=== PATIENT | male | born 1975 | race Caucasian/White ===

== ENCOUNTER 2017-08-08 13:11 | Emergency (ER) | payer OTHER, MEDICARE ==
[2017-08-08 14:21] LABS: Basophils % (Auto) 0.5 % (0.0-1.8); Eosinophils % (Auto) 1.5 % (0.0-4.3); Mean Corpuscular HGB Conc 33 % (32-34); Mean Corpuscular Hemoglobin 30 pg (28-32); Mean Corpuscular Volume 91 fl (84-94); Platelet Count 524 K/mm3 (140-440); Red Blood Count 1.53 M/mm3 (3.65-5.03); Red Cell Distribution Width 14.2 % (13.2-15.2); White Blood Count 6.1 K/mm3 (4.5-11.0)
[2017-08-08 14:30] LABS: Hematocrit 13.9 % (35.5-45.6); Hemoglobin 4.6 gm/dl (11.8-15.2)
[2017-08-08 14:36] LABS: Albumin 3.5 g/dL (3.9-5); Albumin/Globulin Ratio 1.2 %; BUN/Creatinine Ratio 8.8; Bilirubin,Total 0.2 mg/dL (0.1-1.2); Calcium 8.9 mg/dL (8.4-10.2); Chloride 98.2 mmol/L (98-107); Potassium 4.5 mmol/L (3.6-5.0); Total Protein 6.5 g/dL (6.3-8.2)
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
[2017-08-08] MEDS ORDERED: NACL 0.9% 500 ML 500 ML IV ONE (18:38)
[2017-08-09 02:43] VITALS: BP 133/90
== END 2017-08-09 03:20 | disposition left against medical advice (07) ==
LOC: ED 13:11
DX: D64.9 Anemia, unspecified (principal); N18.6 End stage renal disease
CPT/HCPCS: 36415; 36430; 80053; 85025; 86850; 86900; 86901; 86920; 99283; J7040; P9040